=== PATIENT | female | born 1960 ===

== ENCOUNTER 2017-07-17 19:14 | Emergency (ER) | payer MEDICAID ==
[2017-07-17 19:34] VITALS: TEMP 98.5
--- NOTE | 2017-07-17 19:58 | C.PDOC ---
History Of Present Illness <Heather Desouza - Last Filed: 07/17/17 21:16> <Omar Sorensen - Last Filed: 07/17/17 21:35> CC: "chest pain" HPI: 57 year old female with past medical history of HTN, HLD, anxiety, depression, and mood disorder who presents to the ED with chest pain. She states the chest pain started about an hour ago while she was resting in bed watching TV. She states this has never happened before. The chest pain is mid substernal pain that is sharp and constant. She states the pain is an 8/10. The pain radiates to her left neck and left arm She states her left arm to her hand feels numb. She stated when the pain started she felt nauseous and vomited her dinner once at home. She denies shortness of breath, palpitations, abdominal pain or sick contacts. Patient also states she did not take her medications today. PMD: Dr. Torres Past Medical History: HTN, HLD, anxiety, depression, mood disorder and arthritis Past Surgical History: denies Medications: Gabapentin 300mg daily; Meloxican 15mg daily; HCT 25mg; amlodipine 10mg dialy; Atorvastatin 10mg HS; Vevocetirizine 5mg for seasonal allergies, Mirtazapine 45mg daily; escitalopram 20mg daily, Risperidone 1mg ( patient states she has not been taking this medication for a few days); Clonazepam 5mg (patient states she has not taken this medication for a few days) Allergies: NKDA Social History: 1 pack every 3 days smoker for >20 years; social drinker; denies illicit drug use (Heather Desouza) <Heather Desouza - Last Filed: 07/17/17 21:16> <Omar Sorensen - Last Filed: 07/17/17 21:35> Time Seen by Provider: 07/17/17 19:43 Chief Complaint (Nursing): Chest Pain Past Medical History - Medical History PMH: Anxiety, Asthma, Depression, HTN, Hyperlipidemia Family History: States: Unknown Family Hx - Social History Hx Tobacco Use: Yes Hx Alcohol Use: Yes Hx Substance Use: No - Immunization History Hx Tetanus Toxoid Vaccination: Yes Hx Influenza Vaccination: Yes Hx Pneumococcal Vaccination: Yes <Heather Desouza - Last Filed: 07/17/17 21:16> Vital Signs: Last Vital Signs Temp 98.5 F 07/17/17 19:31 Pulse 91 H 07/17/17 20:06 Resp 16 07/17/17 20:06 BP 173/95 H 07/17/17 20:06 Pulse Ox 98 07/17/17 21:17 Review Of Systems Constitutional: Negative for: Fever, Chills Cardiovascular: Positive for: Chest Pain. Negative for: Palpitations Respiratory: Negative for: Cough, Shortness of Breath Gastrointestinal: Positive for: Nausea, Vomiting. Negative for: Diarrhea, Constipation Genitourinary: Negative for: Dysuria Musculoskeletal: Positive for: Neck Pain, Shoulder Pain Neurological: Positive for: Numbness, Dizziness. Negative for: Weakness Psych: Positive for: Anxiety <Heather Desouza. - Last Filed: 07/17/17 21:16> Physical Exam - Physical Exam Appears: No Acute Distress, Other (Anxious ) Skin: Normal Color Head: Atraumatic, Normacephalic Eye(s): bilateral: Normal Inspection, PERRL, EOMI Oral Mucosa: Moist Neck: Other (left neck tenderness to palpation ) Chest: Tenderness (reproducible chest pain - mid substernal tenderness ) Cardiovascular: Rhythm Regular, No Edema, No Murmur, No JVD Respiratory: Normal Breath Sounds, No Decreased Breath Sounds, No Accessory Muscle Use, No Rales, No Rhonchi, No Wheezing Gastrointestinal/Abdominal: Normal Exam, Bowel Sounds (normal ), Soft, No Tenderness Back: Other (left shoulder tenderness to palpation ) Extremity: No Tenderness, No Pedal Edema, No Calf Tenderness, Other (upper and lower bilateral extremity 5/5 muscle strength ) Neurological/Psych: Oriented x3, Normal Speech, Normal Cognition <Heather Desouza. - Last Filed: 07/17/17 21:16> ED Course And Treatment - Laboratory Results Result Diagrams: 07/17/17 20:19 07/17/17 20:19 ECG: Interpreted By Me, Viewed By Me ECG Rhythm: Sinus Rhythm O2 Sat by Pulse Oximetry: 98 Pulse Ox Interpretation: Normal - Radiology CXR: Interpreted by Me, Viewed By Me CXR Interpretation: No: Infiltrates, Fracture, Pnemothorax <Heather Desouza - Last Filed: 07/17/17 21:16> - Laboratory Results Result Diagrams: 07/17/17 20:19 07/17/17 20:19 ECG: Interpreted By Me, Viewed By Me ECG Rhythm: Sinus Rhythm (89), Nonspecific Changes Pulse Ox Interpretation: Normal - Radiology CXR: Interpreted by Me, Viewed By Me CXR Interpretation: No: Infiltrates, Fracture, Pnemothorax Reevaluation Time: 21:33 Reassessment Condition: Improved <Omar Sorensen - Last Filed: 07/17/17 21:35> Medical Decision Making <Heather Desouza S. - Last Filed: 07/17/17 21:16> <Omar Sorensen - Last Filed: 07/17/17 21:35> Medical Decision Making: Chest Pain EKG: NSR trop: negative cbc: H/H 13.8/40.8 cmp: WNL f/u UA 325mg of Aspirin once 20mg of Pepcid once 4mg IV of Zofran once (Heather Desouza S.) Disposition <Heather Desouza S. - Last Filed: 07/17/17 21:16> Counseled Patient/Family Regarding: Studies Performed, Diagnosis, Need For Followup, Rx Given - Disposition Disposition Time: 21:29 <Omar Sorensen - Last Filed: 07/17/17 21:35> - Disposition Referrals: Booker Torres MD [Staff Provider] - Disposition: HOME/ ROUTINE Condition: FAIR Additional Instructions: Please return if symptoms recur Prescriptions: Naproxen [Naprosyn] 1 tab PO BID PRN #25 tab PRN Reason: Pain Pantoprazole Sodium [Protonix] 20 mg PO DAILY #15 ect Instructions: Costochondritis (DC) Forms: [employer] (Danish) - Clinical Impression Clinical Impression: Costochondral chest pain
[2017-07-17] MEDS ORDERED: Aspirin 325 mg EC Tablets PO STA (20:04)
[2017-07-17] MEDS ORDERED: Aspirin 325 mg EC Tablets PO ONE (20:11)
[2017-07-17 20:24] LABS: BASO # 0.1 K/uL (0.0-0.2); BASO % 1.3 % (0.0-2.0); EOS # 0.2 K/uL (0.0-0.7); EOS % 2.7 % (0.0-4.0); HEMOGLOBIN 13.8 g/dL (11.0-16.0); LYMPH # 2.6 K/uL (1.0-4.3); LYMPH % 32.6 % (20.0-40.0); MEAN CELL VOLUME 88.9 fL (81.0-99.0); MEAN CORPUSCULAR HGB CONC 33.8 g/dL (33.0-37.0); MEAN PLATELET VOLUME 9.7 fL (7.2-11.7); MONO # 0.8 K/uL (0.0-0.8); MONO % 9.8 % (0.0-10.0); NEUT # 4.3 K/uL (1.8-7.0); NEUT % 53.6 % (50.0-75.0); NRBC % 0.2 % (0.0-2.0); RBC 4.58 Mil/uL (3.80-5.20); RED CELL DISTRIBUTION WIDTH 13.6 % (11.5-14.5)
[2017-07-17 20:31] LABS: PROTHROMBIN TIME 10.7 SECONDS (9.7-12.2)
[2017-07-17 20:35] LABS: ALB/GLOB RATIO 1.5 (1.0-2.1); ALBUMIN 4.1 g/dL (3.5-5.0); ALT/SGPT 41 U/L (9-52); AST/SGOT 30 U/L (14-36); BLOOD UREA NITROGEN 18 mg/dL (7-17); CALCIUM 9.5 mg/dl (8.6-10.4); GFR AFRICAN-AMERICAN > 60; GFR NON-AFRICAN AMERICAN > 60
[2017-07-17 21:41] VITALS: BP 164/89; PULSE 75; RESP 20; O2SAT 97
[2017-07-17 21:42] LABS: SQUAMOUS EPITHIAL 2 /hpf (0-5); URINE BACTERIA RARE (<OCC); URINE BILIRUBIN NEGATIVE (NEGATIVE); URINE BLOOD NEGATIVE (NEGATIVE); URINE CLARITY Hazy (Clear); URINE COLOR Yellow (YELLOW); URINE GLUCOSE (UA) NORMAL (Normal); URINE LEUKOCYTE ESTERASE TRACE Leu/uL (Negative); URINE NITRATE NEGATIVE (NEGATIVE); URINE PROTEIN NEGATIVE (NEGATIVE); URINE UROBILINOGEN NORMAL mg/dL (0.2-1.0)
--- NOTE | 2017-07-18 08:49 | RAD ---
PROCEDURE: CHEST RADIOGRAPH, 1 VIEW HISTORY: chest pain COMPARISON: 04/15/2016 FINDINGS: LUNGS: Clear. PLEURA: No pneumothorax or pleural fluid seen. CARDIOVASCULAR: Normal. OSSEOUS STRUCTURES: No significant abnormalities. VISUALIZED UPPER ABDOMEN: Normal. OTHER FINDINGS: None. IMPRESSION: No active disease.
--- NOTE | 2017-07-18 13:47 | CARD ---
APPROVED REPORT EKG Measurement Heart [id number] <Conclusion> Normal sinus rhythm
== END 2017-07-17 22:01 | disposition home or self-care (01) ==
LOC: C.ER 19:14
DX: R07.1 Chest pain on breathing (principal); I10 Essential (primary) hypertension; E78.5 Hyperlipidemia, unspecified; Z72.0 Tobacco use
CPT/HCPCS: 71045; 80053; 81001; 84484; 85025; 85610; 85730; 93005; 96374; 96375; 99285; J1885; J2405